=== PATIENT | male | born 1970 | race African-American/Black ===

== ENCOUNTER 2018-09-21 20:53 | Inpatient (IN) | payer OTHER ==
[~2018-09-21] VITALS: Ht 175.3 cm; Wt 97.3 kg
--- NOTE | 2018-09-21 21:13 | ERD ---
ER Documentation Chief Complaint Chief Complaint AP, VOMIT, DIARRHEA X'S 4 DAYS HPI The patient is a 48-year-old male, presenting to the because of diffuse abdominal pain, vomiting and diarrhea for the last 2 days, denies hematemesis /hematochezia. He denies fever, chills, neck pain, chest pain, dysuria. 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 Medications Home Meds Reported Medications Activated Charcoal (Charcoal) 200 Mg Capsule, 400 MG PO, CAP 09/21/18 Ibuprofen* (Advil*) 200 Mg Capsule, 400 MG PO Q6H PRN for PAIN, CAP 09/21/18 Loperamide Hcl* (Imodium*) 2 Mg Capsule, 2 MG PO Q6H PRN for DIARRHEA, CAP MAX 16 mg/day 09/21/18 Allergies Allergies: Coded Allergies: ampicillin (Verified Allergy, Unknown, 09/21/18) Physical Exam Vitals Vital Signs Date Temp Pulse Resp B/P (MAP) Pulse Ox O2 O2 Flow FiO2 Time Delivery Rate 09/21/18 99.0 95 18 137/100 100 Room Air 21:11 (112) 09/21/18 99.0 118 20 155/88 99 20:58 (110) Physical Exam Const: No acute distress. Head: Atraumatic. Eyes: Normal Conjunctiva. ENT: Normal External Ears, Nose and Mouth. Neck: Full range of motion. No meningismus. Resp: Clear to auscultation bilaterally. Cardio: Regular tachycardic Abd: Soft, non distended, normal bowel sounds, moderate and there is abdominal tenderness, hypoactive bowel sounds, no rigidity/rebound/CVA tenderness Skin: No petechiae or rashes. Back: No midline or flank tenderness. Ext: No cyanosis, or edema. Neur: Awake and alert. No focal deficit Psych: Normal Mood and Affect. Result Diagram: 09/21/18211809/21/182118 Results 24 hrs Laboratory Tests Test 09/21/18 21:18 09/21/18 21:19 POC Venous Lactate 2.1 mmol/L White Blood Count 6.6 10^3/ul Red Blood Count 6.35 10^6/ul Hemoglobin 18.9 g/dl Hematocrit 53.1 % Mean Corpuscular Volume 83.6 fl Mean Corpuscular Hemoglobin 29.8 pg Mean Corpuscular Hemoglobin Concent 35.6 g/dl Red Cell Distribution Width 11.9 % Platelet Count 274 10^3/UL Mean Platelet Volume 10.2 fl Immature Granulocytes % 0.300 % Neutrophils % 50.9 % Lymphocytes % 24.3 % Monocytes % 23.1 % Eosinophils % 0.3 % Basophils % 1.1 % Nucleated Red Blood Cells % 0.0 /100WBC Immature Granulocytes # 0.020 10^3/ul Neutrophils # 3.4 10^3/ul Lymphocytes # 1.6 10^3/ul Monocytes # 1.5 10^3/ul Eosinophils # 0.0 10^3/ul Basophils # 0.1 10^3/ul Nucleated Red Blood Cells # 0.0 10^3/ul Prothrombin Time 13.2 Sec Prothrombin Time Ratio 1.0 INR International Normalized Ratio 0.99 Activated Partial Thromboplast Time 24.7 Sec Sodium Level 135 mmol/L Potassium Level 3.9 mmol/L Chloride Level 97 mmol/L Carbon Dioxide Level 24 mmol/L Anion Gap 14 Blood Urea Nitrogen 20 mg/dl Creatinine 1.66 mg/dl Est Glomerular Filtrat Rate mL/min 45 mL/min Glucose Level 167 mg/dl Calcium Level 9.4 mg/dl Total Bilirubin 1.6 mg/dl Direct Bilirubin 0.00 mg/dl Indirect Bilirubin 1.6 mg/dl Aspartate Amino Transf (AST/SGOT) 40 IU/L Alanine Aminotransferase (ALT/SGPT) 56 IU/L Alkaline Phosphatase 72 IU/L Troponin I < 0.012 ng/ml Total Protein 8.6 g/dl Albumin 4.7 g/dl Globulin 3.90 g/dl Albumin/Globulin Ratio 1.20 Current Medications Medications Dose Sig/Cas Start Time Status Last (Trade) Ordered Route PRN Stop Time Admin Dose Reason Admin Sodium 2,750 ml BOLUS OVER 2 09/21/18 DC 09/21/18 Chloride HOURS STAT 21:23 21:43 (NS) IV* 09/21/18 21:27 Piperacillin 100 ml @ ONCE ONCE 09/21/18 DC 09/21/18 Sod/ 200 mls/hr IVPB 21:30 21:58 Tazobactam 09/21/18 21:59 Sod Ondansetron 4 mg ONCE STAT 09/21/18 DC 09/21/18 HCl (Zofran IV 21:23 21:43 Inj) 09/21/18 21:27 Procedures/MDM [place] [id number] Radiology Main Line: [phone] DIAGNOSTIC IMAGING REPORT Patient: MOISE CONLEY : 1970 Age: 48 Sex: M MR #: [id number] DOS: 09/21/182122 Ordering MD: DEVANG MOSCOSO MD Location: E/R Room/Bed: PROCEDURE: CT Abdomen and Pelvis Without Intravenous Contrast CLINICAL INDICATION: Abdominal pain. TECHNIQUE: Axial computed tomography images of the abdomen and pelvis without intravenous contrast. Sagittal and coronal reformatted images were created and reviewed. CTDIvol (mGy) = 15.90; total DLP (mGy-cm) = 1047.07. This CT exam was performed using one or more of the following dose reduction techniques: automated exposure control, adjustment of the mA and/or kV according to patient size, and/or use of iterative reconstruction technique. DICOM images are available. COMPARISON: None FINDINGS: LUNG BASES: Unremarkable. No mass. No consolidation. ABDOMEN: LIVER: Unremarkable. GALLBLADDER AND BILE DUCTS: Unremarkable. No calcified stones. No ductal dilation. PANCREAS: Unremarkable. No ductal dilation. SPLEEN: Unremarkable. No splenomegaly. ADRENALS: Unremarkable. No mass. KIDNEYS AND URETERS: Unremarkable. No obstructing stones. No hydronephrosis. STOMACH AND BOWEL: Multiple dilated small bowel loops are present. The bowel is dilated to the level of the distal ileum. The more proximal small bowel loops are not yet distended. The findings are consistent with distal small bowel obstruction, of uncertain etiology. Air-fluid levels are noted throughout the colon. There is no significant colonic dilatation. No colonic inflammation or gross mass demonstrated. PELVIS: APPENDIX: The appendix is normal in appearance. No evidence of appendicitis. BLADDER: Unremarkable. No stones. REPRODUCTIVE: Unremarkable as visualized. ABDOMEN and PELVIS: INTRAPERITONEAL SPACE: Unremarkable. No free air. No significant fluid collection. BONES/JOINTS: No acute fracture. No dislocation. SOFT TISSUES: Unremarkable. VASCULATURE: Unremarkable. LYMPH NODES: Unremarkable. No enlarged lymph nodes. IMPRESSION: 1. Multiple dilated small bowel loops are present. The bowel is dilated to the level of the distal ileum. The more proximal small bowel loops are not yet distended. The findings are consistent with distal small bowel obstruction, of uncertain etiology. No ischemic change or perforation of the bowel demonstrated. 2. No acute abnormality demonstrated of the solid abdominal organs. RPTAT: [facility] Soctt Melgoza Physician Accounting Coordinator Date Time Electronically viewed and signed by Scott Melgoza Physician Accounting Coordinator on 09/21/2018 23:14 RmC/ CC: DEVANG MOSCOSO MD [id number] [place] [id number] Radiology Main Line: [phone] DIAGNOSTIC IMAGING REPORT Patient: MOISE CONLEY : 1970 Age: 48 Sex: M MR #: [id number] DOS: 09/21/182122 Ordering MD: DEVANG MOSCOSO MD Location: E/R Room/Bed: PROCEDURE: Abdominal ultrasound, limited. CLINICAL INDICATION: Abdominal pain. TECHNIQUE: Multiple real-time images were acquired of the patient's right upper abdomen utilizing a high resolution transducer. COMPARISON: None FINDINGS: The liver demonstrates normal echogenicity and size measuring 15.0 cm. There is no focal hepatic mass identified. There is mild intrahepatic biliary ductal dilatation. The portal vein is patent. The gallbladder is not distended. No gallstones are identified. There is echogenic sludge within the gallbladder. There is no pericholecystic fluid or gallbladder wall thickening. The common bile duct measures 4.5 mm in maximal dimension. The pancreas is obscured by overlying bowel gas. No free fluid is identified. The right kidney is normal size with increased cortical echogenicity measuring 10.1 x 5.6 cm. There is no focal renal mass or echogenic calculus identified. There is no obstructive uropathy. The visualized abdominal aorta and vena cava are unremarkable. IMPRESSION: Gallbladder sludge without ultrasound evidence of cholecystitis. Mild intrahepatic biliary ductal dilatation. Increased right renal cortical echogenicity suggestive of medical renal disease. Pancreas obscured by overlying bowel gas. .Olivier Holbrook MD, MD Date Time Electronically viewed and signed by .Olivier Holbrook MD, MD on 09/21/2018 22:26 .T/ CC: DEVANG MOSCOSO MD [id number] [place] [address] Radiology Main Line: [phone] DIAGNOSTIC IMAGING REPORT Patient: MOISE CONLEY : 1970 Age: 48 Sex: M MR #: [id number] DOS: 09/21/183 Ordering MD: DEVANG MOSCOSO MD Location: E/R Room/Bed: PROCEDURE: XR Chest. CLINICAL INDICATION: Sepsis TECHNIQUE: Frontal chest x-ray was obtained. COMPARISON: None. FINDINGS: The heart is not enlarged. Mediastinum is not widened. No hilar masses seen. Lungs are clear of any infiltrates. There is no effusion or pneumothorax. The osseous structures appear normal. IMPRESSION: No evidence for active cardiopulmonary disease. .Roni Pittman MD, MD Date Time Electronically viewed and signed by .Roni Pittman MD, MD on 09/21/2018 21:29 .A/ CC: DEVANG MOSCOSO MD [id number] EKG: Read by emergency physician Rate/Rhythm: Normal Sinus Rhythm 92 beats/min QRS, ST, T-waves: No ST elevation, no T inversion, RAD Impression: Abnormal EKG Consultation: I notified the contracting manager surgeon Dr Pretty via Telemed at 11pm MEDICAL MAKING DECISION: The patient is a 48-year-old male, presenting with acute severe sepsis, acute SBO. He was treated with normal saline 30 mm/kg IV, Zosyn IV, NG tube for acute SBO, Zofran IV for nausea The differential diagnoses considered include but are not limited to cholelithiasis, cholecystitis, choledocholithiasis, cholangitis, pancreatitis, hepatitis, gastritis, peptic ulcer disease, gastric ulcer, appendicitis, cystitis, diverticulitis, partial small bowel obstruction. Departure Diagnosis: Primary Impression: Abdominal pain Additional Impressions: Small bowel obstruction Renal insufficiency Condition: Stable Comments I discussed the findings with the patient. I discussed the patient with Dr Hall at 11:30p , who was made aware of the lab, the treatment, the patient condition. The patient is admitted to [facility] Disclaimer: Inadvertent spelling and grammatical errors are likely due to EHR/dictation software use and do not reflect on the overall quality of patient care. Also, please note that the electronic time recorded on this note does not necessarily reflect the actual time of the patient encounter. DEVANG MOSCOSO MD Sep 21, 2018 21:13
[2018-09-21] MEDS ORDERED: ONDANSETRON 4 MG INJ IV STA (21:23)
[2018-09-21] MEDS ORDERED: SODIUM CHLORIDE 0.9% 1L BAG IV* STA (21:23)
[2018-09-21] MEDS ORDERED: PIPER-TAZO 3.375 GM IV (PMX) 100 ML IVPB ONE (21:30)
[2018-09-21] MEDS ORDERED: LOPE2CAP PO (22:50)
[2018-09-21] MEDS ORDERED: IBUP200C11 PO (22:50)
[2018-09-21] MEDS ORDERED: ACTI200C PO (22:51)
[2018-09-21] MEDS ORDERED: morphine 2 MG INJ IV PRN (23:30)
[2018-09-21] MEDS ORDERED: ONDANSETRON 4 MG INJ IV PRN (23:30)
[2018-09-21] MEDS ORDERED: NACL 0.9% 3 ML SYG IV SCH (23:30)
[2018-09-21] MEDS ORDERED: ACETAMINOPHEN 650 MG SUPP PR PRN (23:30)
[2018-09-22 00:45] VITALS: BP 128/87; PULSE 80; RESP 19
[2018-09-22] MEDS: SOD CHLORIDE 0.9% 1,000 ML IV SCH ×3 (01:34→22:29)
[2018-09-22 01:50] VITALS: Ht 175.3 cm; Wt 97.3 kg
[2018-09-22 02:00] VITALS: BP 130/89; PULSE 83; RESP 19
[2018-09-22 07:53] VITALS: BP 112/65; PULSE 80; RESP 16
[2018-09-22] MEDS: FAMOTIDINE 20 MG INJ IV SCH ×2 (10:02→20:32)
[2018-09-22] MEDS: ENOXAPARIN 30 MG/0.3 ML SYG SC SCH (10:05)
--- NOTE | 2018-09-22 11:25 | HP ---
Date/Time of Note Date/Time of Note DATE: 09/22/18 TIME: 11:20 Assessment/Plan VTE Prophylaxis SCD applied (from Nsg): Yes Pharmacological prophylaxis: LMWH Lines/Catheters IV Catheter Type (from Nrsg): Peripheral IV Assessment/Plan Assessment/Plan -Small bowel obstruction. Patient n.p.o., continue Zosyn, continue IV fluids. Continue Zofran as needed for nausea. Dr. Bernstein is asked to see patient in gastroenterology consultation. Dr. Pretty is following in general surgery consultation. -Abdominal pain and diarrhea. -Renal insufficiency. Abdominal ultrasound with increased right renal cortical echogenicity suggestive of medical renal disease. Continue IV fluids, monitor creatinine. Continue Pepcid for peptic ulcer disease prophylaxis and Lovenox for deep venous thrombosis prophylaxis. Further recommendations based on clinical course. Plan of care discussed with Dr. Hermosillo. Result Diagram: 09/22/18 0516 09/22/18 0516 Results 24hrs Laboratory Tests Test 09/21/18 21:18 09/21/18 21:19 09/21/18 23:30 09/21/18 23:39 POC Venous Lactate 2.1 *H White Blood Count 6.6 Red Blood Count 6.35 H Hemoglobin 18.9 H Hematocrit 53.1 H Mean Corpuscular 83.6 Volume Mean Corpuscular 29.8 Hemoglobin Mean Corpuscular 35.6 Hemoglobin Concent Red Cell 11.9 Distribution Width Platelet Count 274 Mean Platelet 10.2 Volume Immature 0.300 Granulocytes % Neutrophils % 50.9 Lymphocytes % 24.3 Monocytes % 23.1 H Eosinophils % 0.3 Basophils % 1.1 Nucleated Red Blood 0.0 Cells % Immature 0.020 Granulocytes # Neutrophils # 3.4 Lymphocytes # 1.6 Monocytes # 1.5 H Eosinophils # 0.0 Basophils # 0.1 Nucleated Red Blood 0.0 Cells # Prothrombin Time 13.2 Prothrombin Time 1.0 Ratio INR International 0.99 Normalized Ratio Activated 24.7 Partial Thromboplas t Time Sodium Level 135 Potassium Level 3.9 Chloride Level 97 Carbon Dioxide 24 Level Anion Gap 14 H Blood Urea Nitrogen 20 Creatinine 1.66 H Est Glomerular 45 L Filtrat Rate mL/min Glucose Level 167 Calcium Level 9.4 Total Bilirubin 1.6 H Direct Bilirubin 0.00 Indirect Bilirubin 1.6 H Aspartate Amino 40 Transf (AST/SGOT) Alanine 56 Aminotransferase (A LT/SGPT) Alkaline 72 Phosphatase Troponin I < 0.012 Total Protein 8.6 H Albumin 4.7 Globulin 3.90 H Albumin/Globulin 1.20 Ratio Urine Color KIRIT Urine Clarity CLEAR Urine pH 5.0 Urine Specific 1.015 [place] Urine Ketones NEGATIVE Urine Nitrite NEGATIVE Urine Bilirubin NEGATIVE Urine Urobilinogen NEGATIVE Urine Leukocyte NEGATIVE Esterase Urine Microscopic 1 RBC Urine Microscopic 2 WBC Urine Hemoglobin 1+ H Urine Glucose NEGATIVE Urine Total Protein NEGATIVE Bedside Urine pH 5.5 (LAB) Bedside Urine 1+ H Protein (LAB) Bedside Urine Negative Glucose (UA) Bedside Urine Negative Ketones (LAB) Bedside Urine Blood Trace-lysed H Bedside Urine Negative Nitrite (LAB) Bedside Urine Negative Leukocyte Esterase (L Test 09/22/18 00:14 09/22/18 01:56 09/22/18 05:00 09/22/18 05:16 Lactic Acid Level 1.2 1.1 Stool Occult Blood NEGATIVE White Blood Count 5.5 Red Blood Count 5.59 Hemoglobin 16.4 Hematocrit 46.7 Mean Corpuscular 83.5 Volume Mean Corpuscular 29.3 Hemoglobin Mean Corpuscular 35.1 Hemoglobin Concent Red Cell 12.2 Distribution Width Platelet Count 217 # Mean Platelet 10.3 Volume Immature 0.200 Granulocytes % Neutrophils % Segmented 10 L Neutrophils % (Manual) Band Neutrophils % 29 H (Manual) Lymphocytes % Lymphocytes % 26 (Manual) Reactive 3 H Lymphocytes % (Manual) Monocytes % Monocytes % 26 H (Manual) Eosinophils % Eosinophils % 4 (Manual) Basophils % Promyelocytes % 1 H (Manual) Nucleated Red Blood 0.0 Cells % Immature 0.010 Granulocytes # Neutrophils # Neutrophils # 0.6 L (Manual) Band Neutrophils # 1.5 H Lymphocytes 1.4 (Manual) Lymphocytes # Reactive 0.1 H Lymphocytes # Monocytes # Monocytes # 1.4 H (Manual) Eosinophils # Basophils # Promyelocytes # 0.0 Nucleated Red Blood Cells # Platelet Estimate NORMAL Giant Platelets 2 H Polychromasia 1+ Tear Drop Cells 2+ Sodium Level 140 Potassium Level 3.5 Chloride Level 106 Carbon Dioxide 21 Level Anion Gap 13 Blood Urea Nitrogen 17 Creatinine 1.28 H Est Glomerular > 60 Filtrat Rate mL/min Glucose Level 115 # Hemoglobin A1c 5.5 Calcium Level 8.0 L Total Bilirubin 2.4 H Direct Bilirubin 0.90 #H Indirect Bilirubin 1.5 H Aspartate Amino 37 Transf (AST/SGOT) Alanine 56 Aminotransferase (A LT/SGPT) Alkaline 61 Phosphatase Total Protein 7.1 # Albumin 3.7 # Globulin 3.40 H Albumin/Globulin 1.08 Ratio HPI/ROS Admit Date/Time Admit Date/Time Sep 21, 2018 at 23:30 Hx of Present Illness Patient is 48-year-old gentleman who denies any chronic conditions. Patient had a history of right shoulder sarcoma and underwent surgery for that in 2005, and according to patient, was clear from cancer since then. Patient stated that he developed nausea and watery diarrhea on Thursday after eating pizza at work. Symptoms did not get better over the weekend and patient presented to the emergency room last night. Patient denies any hematemesis, denies hematochezia. Patient denies any fever chills, denies any chest pain denies shortness of breath, denies any bilateral lower extremities edema. CT of the abdomen and pelvis revealed distal small bowel obstruction. Patient was given IV fluids, started on Zosyn and admitted for further evaluation and management to medical s urgical floor. ROS 12 point review of system is negative except for what mentioned in HPI PMH/Family/Social Past Medical History Medical History: other (History of skin sarcoma status post surgery, currently in remission) Medications Current Medications Sodium Chloride 1,000 ml @ 100 mls/hr Q10H IV Last administered on 09/22/18at 01:34; Admin Dose 100 MLS/HR; Start 09/21/18 at 23:30 IV Flush (NS 3 ml) 3 ml PER PROTOCOL IV ; Start 09/21/18 at 23:30 Ondansetron HCl (Zofran Inj) 4 mg Q6H PRN IV NAUSEA/VOMITING; Start 09/21/18 at 23:30 Acetaminophen (Tylenol Supp) 650 mg Q6H PRN [place] .PAIN 1-3 OR TEMP; Start 09/21/18 at 23:30 Morphine Sulfate (morphine) 2 mg Q4H PRN IV .SEVERE PAIN 7-10; Start 09/21/18 at 23:30 Famotidine (Pepcid Iv) 20 mg Q12 IV Last administered on 09/22/18at 10:02; Admin Dose 20 MG; Start 09/22/18 at 09:00 Enoxaparin Sodium (Lovenox) 30 mg DAILY SC Last administered on 09/22/18at 10:05; Admin Dose 30 MG; Start 09/22/18 at 09:00 Coded Allergies: ampicillin (Verified Allergy, Unknown, 09/21/18) Past Surgical History Past Surgical Hx: other (Right shoulder surgery for skin sarcoma in 2006) Family History Significant Family History: cancer (Colon cancer in patient's father) Social History Alcohol Use: rarely Smoking Status: Never smoker Drug Use: none Exam/Review of Systems Vital Signs Vitals Vital Signs Date Temp Pulse Resp B/P (MAP) Pulse Ox O2 O2 Flow FiO2 Time Delivery Rate 09/22/18 98.4 80 16 112/65 98 07:53 (81) 09/22/18 Room Air 00:31 Intake and Output 09/21/18 09/21/18 09/22/18 1515:00 23:00 07:00 IntakeIntake Total 350 ml BalanceBalance 350 ml Exam Constitutional: alert, oriented Head: normocephalic Neck: supple Respiratory: normal air movement Cardiovascular: nl pulses Gastrointestinal: soft, tender Musculoskeletal: nl extremities to inspection Extremities: normal pulses Neurological: nl mental status ALLISON YOST Sep 22, 2018 11:25
[2018-09-22] MEDS: PIPER-TAZO 3.375 GM IV (PMX) 100 ML IVPB SCH ×2 (13:22→22:29)
--- NOTE | 2018-09-22 13:31 | CONS ---
Assessment/Plan Assessment/Plan Hospital Course (Demo Recall) 1. Concern for small bowel obstruction: Currently + bowel function -SBFT -Ambulate -N.p.o. -IV fluids 2. Abdominal pain: Much improved -As above -Pain management 3. Hyperbilirubinemia: Noted sludge in gallbladder without cholecystitis -Trend -Consider GI consult 4. BRE: -Limit nephrotoxic meds -Renally dose meds -Per renal -Judicious fluids Thank you. Patient seen and examined in collaboration with Dr. Regulo Pretty. Consultation Date/Type/Reason Admit Date/Time Sep 21, 2018 at 23:30 Date of Consultation: Sep 22, 2018 Type of Consult surgical Reason for Consultation abdominal pain, concern for bowel obstruction Requesting Provider: ALLISON YOST Date/Time of Note DATE: 09/22/18 TIME: 13:18 Hx of Present Illness Reese Palomino is a 48-year-old man with past medical history of skin sarcoma status post excision, who presented to the ED with complaints of abdominal pain. Abdominal pain began on Thursday after eating pizza. Abdominal pain is predominantly in the right mid to lower quadrant, strong in nature. Associated symptoms include nausea and vomiting as well as watery diarrhea. He denies fevers, chills, congested cough, chest pain, palpitations, skin or scleral changes, dysuria, hematemesis, hematochezia. CT of the abdomen and pelvis noted multiple dilated small bowel loops at the level of distal ileum concerning for small bowel obstruction. General surgery was asked to evaluate. 12 point review of systems was performed and is negative except as stated in HPI. Past Medical History As above Medical History: other (History of skin sarcoma status post surgery, currently in remission) Home Meds Reported Medications Activated Charcoal (Charcoal) 200 Mg Capsule, 400 MG PO, CAP 09/21/18 Ibuprofen* (Advil*) 200 Mg Capsule, 400 MG PO Q6H PRN for PAIN, CAP 09/21/18 Loperamide Hcl* (Imodium*) 2 Mg Capsule, 2 MG PO Q6H PRN for DIARRHEA, CAP MAX 16 mg/day 09/21/18 Medications Current Medications Sodium Chloride 1,000 ml @ 100 mls/hr Q10H IV Last administered on 09/22/18at 01:34; Admin Dose 100 MLS/HR; Start 09/21/18 at 23:30 IV Flush (NS 3 ml) 3 ml PER PROTOCOL IV ; Start 09/21/18 at 23:30 Ondansetron HCl (Zofran Inj) 4 mg Q6H PRN IV NAUSEA/VOMITING; Start 09/21/18 at 23:30 Acetaminophen (Tylenol Supp) 650 mg Q6H PRN [place] .PAIN 1-3 OR TEMP; Start 09/21/18 at 23:30 Morphine Sulfate (morphine) 2 mg Q4H PRN IV .SEVERE PAIN 7-10; Start 09/21/18 at 23:30 Famotidine (Pepcid Iv) 20 mg Q12 IV Last administered on 09/22/18at 10:02; Admin Dose 20 MG; Start 09/22/18 at 09:00 Enoxaparin Sodium (Lovenox) 30 mg DAILY SC Last administered on 09/22/18at 10:05; Admin Dose 30 MG; Start 09/22/18 at 09:00 Piperacillin Sod/ Tazobactam Sod 100 ml @ 100 mls/hr Q8 IVPB ; Start 09/22/18 at 13:00 Allergies: Coded Allergies: ampicillin (Verified Allergy, Unknown, 09/21/18) Past Surgical History As above Past Surgical Hx: other (Right shoulder surgery for skin sarcoma in 2005) Family History Significant Family History: no pertinent family hx Social History Alcohol Use: rarely Smoking Status: Never smoker Drug Use: none Exam/Review of Systems Exam Vitals Vital Signs Date Temp Pulse Resp B/P (MAP) Pulse Ox O2 O2 Flow FiO2 Time Delivery Rate 09/22/18 98.4 80 16 112/65 98 07:53 (81) 09/22/18 Room Air 00:31 Intake and Output 09/21/18 09/21/18 09/22/18 1515:00 23:00 07:00 IntakeIntake Total 350 ml BalanceBalance 350 ml Constitutional: alert, oriented, well developed Psych: nl mood/affect; No anxiety Head: normocephalic, atraumatic Eyes: nl conjunctiva, EOMI, nl lids; No nl sclera (Minimal icterus) ENMT: nl external ears & nose, nl lips & teeth, nl nasal mucosa & septum, mucosa pink and moist Neck: supple, non-tender; No jvd Respiratory: normal air movement; No congested cough Cardiovascular: regular rate and rhythm Gastrointestinal: soft, non-tender, other (Umbilical hernia) Musculoskeletal: nl extremities to inspection, nl gait and stance Extremities: normal pulses Neurological: nl mental status, nl speech, nl strength Skin: nl turgor; No rash or lesions Lymph: nl lymph nodes Results Result Diagram: 09/22/18 0516 09/22/18 0516 Results 24hrs Laboratory Tests Test 09/21/18 21:18 09/21/18 21:19 09/21/18 23:30 09/21/18 23:39 POC Venous Lactate 2.1 *H White Blood Count 6.6 Red Blood Count 6.35 H Hemoglobin 18.9 H Hematocrit 53.1 H Mean Corpuscular 83.6 Volume Mean Corpuscular 29.8 Hemoglobin Mean Corpuscular 35.6 Hemoglobin Concent Red Cell 11.9 Distribution Width Platelet Count 274 Mean Platelet 10.2 Volume Immature 0.300 Granulocytes % Neutrophils % 50.9 Lymphocytes % 24.3 Monocytes % 23.1 H Eosinophils % 0.3 Basophils % 1.1 Nucleated Red Blood 0.0 Cells % Immature 0.020 Granulocytes # Neutrophils # 3.4 Lymphocytes # 1.6 Monocytes # 1.5 H Eosinophils # 0.0 Basophils # 0.1 Nucleated Red Blood 0.0 Cells # Prothrombin Time 13.2 Prothrombin Time 1.0 Ratio INR International 0.99 Normalized Ratio Activated 24.7 Partial Thromboplas t Time Sodium Level 135 Potassium Level 3.9 Chloride Level 97 Carbon Dioxide 24 Level Anion Gap 14 H Blood Urea Nitrogen 20 Creatinine 1.66 H Est Glomerular 45 L Filtrat Rate mL/min Glucose Level 167 Calcium Level 9.4 Total Bilirubin 1.6 H Direct Bilirubin 0.00 Indirect Bilirubin 1.6 H Aspartate Amino 40 Transf (AST/SGOT) Alanine 56 Aminotransferase (A LT/SGPT) Alkaline 72 Phosphatase Troponin I < 0.012 Total Protein 8.6 H Albumin 4.7 Globulin 3.90 H Albumin/Globulin 1.20 Ratio Urine Color KIRIT Urine Clarity CLEAR Urine pH 5.0 Urine Specific 1.015 Dwarf Urine Ketones NEGATIVE Urine Nitrite NEGATIVE Urine Bilirubin NEGATIVE Urine Urobilinogen NEGATIVE Urine Leukocyte NEGATIVE Esterase Urine Microscopic 1 RBC Urine Microscopic 2 WBC Urine Hemoglobin 1+ H Urine Glucose NEGATIVE Urine Total Protein NEGATIVE Bedside Urine pH 5.5 (LAB) Bedside Urine 1+ H Protein (LAB) Bedside Urine Negative Glucose (UA) Bedside Urine Negative Ketones (LAB) Bedside Urine Blood Trace-lysed H Bedside Urine Negative Nitrite (LAB) Bedside Urine Negative Leukocyte Esterase (L Test 09/22/18 00:14 09/22/18 01:56 09/22/18 05:00 09/22/18 05:16 Lactic Acid Level 1.2 1.1 Stool Occult Blood NEGATIVE White Blood Count 5.5 Red Blood Count 5.59 Hemoglobin 16.4 Hematocrit 46.7 Mean Corpuscular 83.5 Volume Mean Corpuscular 29.3 Hemoglobin Mean Corpuscular 35.1 Hemoglobin Concent Red Cell 12.2 Distribution Width Platelet Count 217 # Mean Platelet 10.3 Volume Immature 0.200 Granulocytes % Neutrophils % Segmented 10 L Neutrophils % (Manual) Band Neutrophils % 29 H (Manual) Lymphocytes % Lymphocytes % 26 (Manual) Reactive 3 H Lymphocytes % (Manual) Monocytes % Monocytes % 26 H (Manual) Eosinophils % Eosinophils % 4 (Manual) Basophils % Promyelocytes % 1 H (Manual) Nucleated Red Blood 0.0 Cells % Immature 0.010 Granulocytes # Neutrophils # Neutrophils # 0.6 L (Manual) Band Neutrophils # 1.5 H Lymphocytes 1.4 (Manual) Lymphocytes # Reactive 0.1 H Lymphocytes # Monocytes # Monocytes # 1.4 H (Manual) Eosinophils # Basophils # Promyelocytes # 0.0 Nucleated Red Blood Cells # Platelet Estimate NORMAL Giant Platelets 2 H Polychromasia 1+ Tear Drop Cells 2+ Sodium Level 140 Potassium Level 3.5 Chloride Level 106 Carbon Dioxide 21 Level Anion Gap 13 Blood Urea Nitrogen 17 Creatinine 1.28 H Est Glomerular > 60 Filtrat Rate mL/min Glucose Level 115 # Hemoglobin A1c 5.5 Calcium Level 8.0 L Total Bilirubin 2.4 H Direct Bilirubin 0.90 #H Indirect Bilirubin 1.5 H Aspartate Amino 37 Transf (AST/SGOT) Alanine 56 Aminotransferase (A LT/SGPT) Alkaline 61 Phosphatase Total Protein 7.1 # Albumin 3.7 # Globulin 3.40 H Albumin/Globulin 1.08 Ratio Medications Medication Current Medications Sodium Chloride 1,000 ml @ 100 mls/hr Q10H IV Last administered on 09/22/18at 01:34; Admin Dose 100 MLS/HR; Start 09/21/18 at 23:30 IV Flush (NS 3 ml) 3 ml PER PROTOCOL IV ; Start 09/21/18 at 23:30 Ondansetron HCl (Zofran Inj) 4 mg Q6H PRN IV NAUSEA/VOMITING; Start 09/21/18 at 23:30 Acetaminophen (Tylenol Supp) 650 mg Q6H PRN [place] .PAIN 1-3 OR TEMP; Start 09/21/18 at 23:30 Morphine Sulfate (morphine) 2 mg Q4H PRN IV .SEVERE PAIN 7-10; Start 09/21/18 at 23:30 Famotidine (Pepcid Iv) 20 mg Q12 IV Last administered on 09/22/18at 10:02; Admin Dose 20 MG; Start 09/22/18 at 09:00 Enoxaparin Sodium (Lovenox) 30 mg DAILY SC Last administered on 09/22/18at 10:05; Admin Dose 30 MG; Start 09/22/18 at 09:00 Piperacillin Sod/ Tazobactam Sod 100 ml @ 100 mls/hr Q8 IVPB ; Start 09/22/18 at 13:00 SRAVAN HAMILTON NP Sep 22, 2018 13:31
--- NOTE | 2018-09-22 19:41 | CONS ---
DATE OF ADMISSION: 09/21/2018 DATE OF CONSULTATION: HISTORY OF PRESENT ILLNESS: The patient is a 48-year-old gentleman with no surgery on his abdomen in the past. No history of any kind of colitis or Crohn's disease, was admitted to the hospital for ab dominal pain, nausea and vomiting and this happened after eating pizza. No fever, no chills, no o r MACHINE BURRER problem. No history of circumstantial evidence of food poisoning. PAST MEDICAL HISTORY: History of skin sarcoma for which he had surgery. MEDICATIONS: He was on ibuprofen and was given Imodium. In-hospital medications reviewed. ALLERGIES: AMPICILLIN. FAMILY HISTORY: Father had a colon cancer. PHYSICAL EXAMINATION: GENERAL: Alert, awake, not in distress. I saw him in the x-ray department. CARDIOVASCULAR: Totally benign. LUNGS: Clear. EXTREMITIES: No edema. CENTRAL NERVOUS SYSTEM: Grossly within normal limits. LABORATORY DATA: He had multiple bowel movements in the radiology department. I reviewed his x-ray and there was a good flow of contrast all the way into the rectum not indicative of any obstructive p athology. IMPRESSION: 1. Small-bowel obstruction as described on CAT scan, has clinically and radiologically seems to have resolved. 2. Family history of colon carcinoma. 3. Sarcoma of the skin for which he had a surgery. PLAN: To start him on a clear liquid diet, Zofran or Reglan for the symptomatic relief of nausea, vo miting which he does not have it now and will advance the diet slowly. Continue IV hydration. Dictated By: YRN NIELSON MD PJ/NTS Conf#: [id number] DID#: [id number] CC: VOLODYMYR MORAN MD; EVAN EVERETT MD; ALLISON YOST NP;*EndCC*
[2018-09-22 20:00] VITALS: BP 129/84; PULSE 91; RESP 19
[2018-09-23 02:00] VITALS: BP 123/77; PULSE 81; RESP 19
[2018-09-23] MEDS: PIPER-TAZO 3.375 GM IV (PMX) 100 ML IVPB SCH ×3 (06:14→21:42)
[2018-09-23] MEDS: SOD CHLORIDE 0.9% 1,000 ML IV SCH ×3 (07:39→20:37)
[2018-09-23 08:37] VITALS: BP 128/83; PULSE 80; RESP 18
[2018-09-23] MEDS: ENOXAPARIN 30 MG/0.3 ML SYG SC SCH (09:00)
[2018-09-23] MEDS: FAMOTIDINE 20 MG INJ IV SCH ×2 (09:24→20:22)
--- NOTE | 2018-09-23 11:01 | CONS ---
Assessment/Plan Assessment/Plan Assessment/Plan (Daily) IMPRESSION: 1. Small-bowel obstruction as described on CAT scan, has clinically and radiologically seems to have resolved. 2. Family history of colon carcinoma. 3. Sarcoma of the skin for which he had a surgery. 4. Indirect bilirubinemia. Patient may have a Gilbert's syndrome Plan Advance diet Patient needs colonoscopy as an outpatient given the strong family history of colon cancer. I have discussed with the patient and he will follow-up with his outpatient rehab physician Consultation Date/Type/Reason Admit Date/Time Sep 21, 2018 at 23:30 Initial Consult Date 09/22/18 Requesting Provider: ALLISON YOST Date/Time of Note DATE: 09/23/18 TIME: 11:00 24 HR Interval Summary Free Text/Dictation Patient denies of abdominal pain no nausea no vomiting He has some diarrhea. Constitutional: no complaints, improved Exam/Review of Systems Exam Vitals Vital Signs Date Temp Pulse Resp B/P (MAP) Pulse Ox O2 O2 Flow FiO2 Time Delivery Rate 09/23/18 98.4 80 18 128/83 98 Room Air 08:37 (98) Intake and Output 09/22/18 09/22/18 09/23/18 1515:00 23:00 07:00 IntakeIntake Total 100 ml 1650 ml 750 ml BalanceBalance 100 ml 1650 ml 750 ml Constitutional: alert, oriented, well developed Psych: no complaints, nl mood/affect Head: normocephalic, atraumatic Eyes: nl conjunctiva, EOMI, nl lids, nl sclera, PERRL ENMT: nl external ears & nose, nl lips & teeth, nl nasal mucosa & septum Neck: supple, non-tender Respiratory: clear to auscultation, normal air movement Cardiovascular: regular rate and rhythm, nl pulses Gastrointestinal: soft, nl liver, spleen, non-tender Musculoskeletal: nl extremities to inspection, nl gait and stance Extremities: normal pulses Neurological: [employer] II-XII intact, nl mental status, nl speech, nl strength Skin: nl turgor; No rash or lesions Lymph: nl lymph nodes Results Result Diagram: 09/22/18 0516 09/23/18 0659 Results 24hrs Laboratory Tests Test 09/23/18 06:59 Sodium Level 137 Potassium Level 3.1 L Chloride Level 102 Carbon Dioxide Level 24 Anion Gap 11 Blood Urea Nitrogen 15 Creatinine 1.39 H Est Glomerular Filtrat Rate mL/min > 60 Glucose Level 119 Calcium Level 8.7 Total Bilirubin 1.4 H Direct Bilirubin 0.10 # Indirect Bilirubin 1.3 H Aspartate Amino Transf (AST/SGOT) 47 H Alanine Aminotransferase (ALT/SGPT) 71 H Alkaline Phosphatase 67 Total Protein 7.5 Albumin 4.1 Globulin 3.40 H Albumin/Globulin Ratio 1.20 Medications Medication Current Medications Sodium Chloride 1,000 ml @ 100 mls/hr Q10H IV Last administered on 09/22/18at 22:29; Admin Dose 100 MLS/HR; Start 09/21/18 at 23:30 IV Flush (NS 3 ml) 3 ml PER PROTOCOL IV ; Start 09/21/18 at 23:30 Ondansetron HCl (Zofran Inj) 4 mg Q6H PRN IV NAUSEA/VOMITING; Start 09/21/18 at 23:30 Acetaminophen (Tylenol Supp) 650 mg Q6H PRN [place] .PAIN 1-3 OR TEMP; Start 09/21/18 at 23:30 Morphine Sulfate (morphine) 2 mg Q4H PRN IV .SEVERE PAIN 7-10; Start 09/21/18 at 23:30 Famotidine (Pepcid Iv) 20 mg Q12 IV Last administered on 09/23/18at 09:24; Admin Dose 20 MG; Start 09/22/18 at 09:00 Enoxaparin Sodium (Lovenox) 30 mg DAILY SC Last administered on 09/22/18at 10:05; Admin Dose 30 MG; Start 09/22/18 at 09:00 Piperacillin Sod/ Tazobactam Sod 100 ml @ 100 mls/hr Q8 IVPB Last administered on 09/23/18at 06:14; Admin Dose 100 MLS/HR; Start 09/22/18 at 13:00 YRN NIELSON MD Sep 23, 2018 11:01
--- NOTE | 2018-09-23 13:34 | PN ---
Date/Time of Note Date/Time of Note DATE: 09/23/18 TIME: 13:32 Assessment/Plan Lines/Catheters IV Catheter Type (from Nrs): Peripheral IV Assessment/Plan Chief Complaint/Hosp Course 1. Concern for small bowel obstruction: Currently + bowel function; SBFT noted no obstruction -Advance diet as tolerated -No surgical intervention necessary at this time 2. Abdominal pain: Resolved -As above -Pain management 3. Hyperbilirubinemia: Noted sludge in gallbladder without cholecystitis -Trend -Per GI 4. BRE: -Limit nephrotoxic meds -Renally dose meds -Judicious fluids Thank you. Patient seen and examined in collaboration with Dr. Regulo Pretty. Subjective 24 Hr Interval Summary SBFT noted without bowel obstruction. No abdominal pain. Will advance diet today. No fevers, chills, sob, congested cough, cp, palpitations, logan, dizziness, nausea, vomiting, diarrhea, dysuria. Exam/Review of Systems Vital Signs Vitals Vital Signs Date Temp Pulse Resp B/P (MAP) Pulse Ox O2 O2 Flow FiO2 Time Delivery Rate 09/23/18 98.4 80 18 128/83 98 Room Air 08:37 (98) Intake and Output 09/22/18 09/22/18 09/23/18 1515:00 23:00 07:00 IntakeIntake Total 100 ml 1650 ml 750 ml BalanceBalance 100 ml 1650 ml 750 ml Exam Free Text/Dictation Constitutional: alert, oriented, well developed Psych: nl mood/affect; No anxiety Head: normocephalic, atraumatic Eyes: nl conjunctiva, EOMI, nl lids; No nl sclera (Minimal icterus) ENMT: nl external ears & nose, nl lips & teeth, nl nasal mucosa & septum, mucosa pink and moist Neck: supple, non-tender; No jvd Respiratory: normal air movement; No congested cough Cardiovascular: regular rate and rhythm Gastrointestinal: soft, non-tender, other (Umbilical hernia) Musculoskeletal: nl extremities to inspection, nl gait and stance Extremities: normal pulses Neurological: nl mental status, nl speech, nl strength Skin: nl turgor; No rash or lesions Lymph: nl lymph nodes Results Result Diagram: 09/22/18 0516 09/23/18 0659 SRAVAN HAMILTON NP Sep 23, 2018 13:34
[2018-09-23 14:56] VITALS: BP 121/81; PULSE 81; RESP 18
--- NOTE | 2018-09-23 18:45 | PN ---
Date/Time of Note Date/Time of Note DATE: 09/23/18 TIME: 18:39 Assessment/Plan VTE Prophylaxis Risk score (from Ns)>0 risk: 2 SCD applied (from Nsg): Yes Pharmacological prophylaxis: LMWH Lines/Catheters IV Catheter Type (from Nrs): Peripheral IV Assessment/Plan Hospital Course Patient stated that he feels better, advance diet to soft, small bowel series is negative for small bowel obstruction, if patient is able to tolerate regular diet well patient can be discharged home tomorrow. Patient is to follow-up with Dr. Bernstein, gastroenterology consultation for colonoscopy due to strong family history of colon cancer. Plan of care discussed with patient and nurse at the bedside, all questions answered. Assessment/Plan -Small bowel obstruction, resolving. Advance diet as patient tolerates. Dr. Bernstein is following in gastroenterology consultation. Dr. Pretty is following in general surgery consultation. -Abdominal pain and diarrhea, resolved. -Indirect bilirubinemia most likely secondary to Gilbert's syndrome -Renal insufficiency. Abdominal ultrasound with increased right renal cortical echogenicity suggestive of medical renal disease. Renal ultrasound is unremar kable. Continue IV fluids, monitor creatinine. Continue Pepcid for peptic ulcer disease prophylaxis and Lovenox for deep venous thrombosis prophylaxis. Further recommendations based on clinical course. Plan of care discussed with Dr. Hermosillo. Result Diagram: 09/22/18 0516 09/23/18 0659 Results 24hrs Laboratory Tests Test 09/23/18 06:59 Sodium Level 137 Potassium Level 3.1 L Chloride Level 102 Carbon Dioxide Level 24 Anion Gap 11 Blood Urea Nitrogen 15 Creatinine 1.39 H Est Glomerular Filtrat Rate mL/min > 60 Glucose Level 119 Calcium Level 8.7 Total Bilirubin 1.4 H Direct Bilirubin 0.10 # Indirect Bilirubin 1.3 H Aspartate Amino Transf (AST/SGOT) 47 H Alanine Aminotransferase (ALT/SGPT) 71 H Alkaline Phosphatase 67 Total Protein 7.5 Albumin 4.1 Globulin 3.40 H Albumin/Globulin Ratio 1.20 Exam/Review of Systems Exam Vitals Vital Signs Date Temp Pulse Resp B/P (MAP) Pulse Ox O2 O2 Flow FiO2 Time Delivery Rate 09/23/18 98.2 81 18 121/81 98 14:56 (94) Intake and Output 09/22/18 09/22/18 09/23/18 1515:00 23:00 07:00 IntakeIntake Total 100 ml 1650 ml 750 ml BalanceBalance 100 ml 1650 ml 750 ml Exam Constitutional: alert, oriented Respiratory: normal air movement Cardiovascular: nl pulses Gastrointestinal: soft, non-tender Musculoskeletal: nl extremities to inspection Extremities: normal pulses Neurological: nl mental status Results Results 24hrs Laboratory Tests Test 09/23/18 06:59 Sodium Level 137 Potassium Level 3.1 L Chloride Level 102 Carbon Dioxide Level 24 Anion Gap 11 Blood Urea Nitrogen 15 Creatinine 1.39 H Est Glomerular Filtrat Rate mL/min > 60 Glucose Level 119 Calcium Level 8.7 Total Bilirubin 1.4 H Direct Bilirubin 0.10 # Indirect Bilirubin 1.3 H Aspartate Amino Transf (AST/SGOT) 47 H Alanine Aminotransferase (ALT/SGPT) 71 H Alkaline Phosphatase 67 Total Protein 7.5 Albumin 4.1 Globulin 3.40 H Albumin/Globulin Ratio 1.20 Medications Medication Current Medications Sodium Chloride 1,000 ml @ 100 mls/hr Q10H IV Last administered on 09/22/18at 22:29; Admin Dose 100 MLS/HR; Start 09/21/18 at 23:30 IV Flush (NS 3 ml) 3 ml PER PROTOCOL IV ; Start 09/21/18 at 23:30 Ondansetron HCl (Zofran Inj) 4 mg Q6H PRN IV NAUSEA/VOMITING; Start 09/21/18 at 23:30 Acetaminophen (Tylenol Supp) 650 mg Q6H PRN [place] .PAIN 1-3 OR TEMP; Start 09/21/18 at 23:30 Morphine Sulfate (morphine) 2 mg Q4H PRN IV .SEVERE PAIN 7-10; Start 09/21/18 at 23:30 Famotidine (Pepcid Iv) 20 mg Q12 IV Last administered on 09/23/18at 09:24; Admin Dose 20 MG; Start 09/22/18 at 09:00 Enoxaparin Sodium (Lovenox) 30 mg DAILY SC Last administered on 09/22/18at 10:05; Admin Dose 30 MG; Start 09/22/18 at 09:00 Piperacillin Sod/ Tazobactam Sod 100 ml @ 100 mls/hr Q8 IVPB Last administered on 09/23/18at 15:42; Admin Dose 100 MLS/HR; Start 09/22/18 at 13:00 ALLISON YOST 13, 2019 18:45
[2018-09-23] MEDS ORDERED: POTASSIUM CHLORIDE 20 MEQ POWDER FOR ORAL SOLN PO ONE (19:00)
[2018-09-23 20:00] VITALS: BP 133/87; PULSE 79; RESP 17
[2018-09-24] MEDS: SOD CHLORIDE 0.9% 1,000 ML IV SCH ×2 (01:30→09:42)
[2018-09-24 01:57] VITALS: BP 133/89; PULSE 88; RESP 17
--- NOTE | 2018-09-24 05:19 | PN ---
Date/Time of Note Date/Time of Note DATE: 09/24/18 TIME: 05:19 Assessment/Plan VTE Prophylaxis Risk score (from Nsg)>0 risk: 2 SCD applied (from Nsg): No Lines/Catheters IV Catheter Type (from Nrsg): Peripheral IV Assessment/Plan Assessment/Plan -Small bowel obstruction, resolving. Advance diet as patient tolerates. Dr. Bernstein is following in gastroenterology consultation. Dr. Pretty is following in general surgery consultation. -Abdominal pain and diarrhea, resolved. -Indirect bilirubinemia most likely secondary to Gilbert's syndrome -Renal insufficiency. Abdominal ultrasound with increased right renal cortical echogenicity suggestive of medical renal disease. Renal ultrasound is unremarkable. Continue IV fluids, monitor creatinine. Continue Pepcid for peptic ulcer disease prophylaxis and Lovenox for deep venous thrombosis prophylaxis. Further recommendations based on clinical course. Plan of care discussed with Dr. Hermosillo. Result Diagram: 09/22/18 0516 09/23/18 0659 Results 24hrs Laboratory Tests Test 09/23/18 06:59 Sodium Level 137 Potassium Level 3.1 L Chloride Level 102 Carbon Dioxide Level 24 Anion Gap 11 Blood Urea Nitrogen 15 Creatinine 1.39 H Est Glomerular Filtrat Rate mL/min > 60 Glucose Level 119 Calcium Level 8.7 Total Bilirubin 1.4 H Direct Bilirubin 0.10 # Indirect Bilirubin 1.3 H Aspartate Amino Transf (AST/SGOT) 47 H Alanine Aminotransferase (ALT/SGPT) 71 H Alkaline Phosphatase 67 Total Protein 7.5 Albumin 4.1 Globulin 3.40 H Albumin/Globulin Ratio 1.20 Exam/Review of Systems Exam Vitals Vital Signs Date Temp Pulse Resp B/P (MAP) Pulse Ox O2 O2 Flow FiO2 Time Delivery Rate 09/24/18 98.5 88 17 133/89 97 01:57 (104) 09/23/18 14:56 Intake and Output 09/23/18 09/23/18 09/24/18 1515:00 23:00 07:00 IntakeIntake Total 1240 ml 510 ml OutputOutput Total 200 ml BalanceBalance 1040 ml 510 ml Results Results 24hrs Laboratory Tests Test 09/23/18 06:59 Sodium Level 137 Potassium Level 3.1 L Chloride Level 102 Carbon Dioxide Level 24 Anion Gap 11 Blood Urea Nitrogen 15 Creatinine 1.39 H Est Glomerular Filtrat Rate mL/min > 60 Glucose Level 119 Calcium Level 8.7 Total Bilirubin 1.4 H Direct Bilirubin 0.10 # Indirect Bilirubin 1.3 H Aspartate Amino Transf (AST/SGOT) 47 H Alanine Aminotransferase (ALT/SGPT) 71 H Alkaline Phosphatase 67 Total Protein 7.5 Albumin 4.1 Globulin 3.40 H Albumin/Globulin Ratio 1.20 Medications Medication Current Medications Sodium Chloride 1,000 ml @ 100 mls/hr Q10H IV Last administered on 09/23/18at 20:37; Admin Dose 100 MLS/HR; Start 09/21/18 at 23:30 IV Flush (NS 3 ml) 3 ml PER PROTOCOL IV ; Start 09/21/18 at 23:30 Ondansetron HCl (Zofran Inj) 4 mg Q6H PRN IV NAUSEA/VOMITING; Start 09/21/18 at 23:30 Acetaminophen (Tylenol Supp) 650 mg Q6H PRN [place] .PAIN 1-3 OR TEMP; Start 09/21/18 at 23:30 Morphine Sulfate (morphine) 2 mg Q4H PRN IV .SEVERE PAIN 7-10; Start 09/21/18 at 23:30 Famotidine (Pepcid Iv) 20 mg Q12 IV Last administered on 09/23/18at 20:22; Admin Dose 20 MG; Start 09/22/18 at 09:00 Enoxaparin Sodium (Lovenox) 30 mg DAILY SC Last administered on 09/22/18at 10:05; Admin Dose 30 MG; Start 09/22/18 at 09:00 Piperacillin Sod/ Tazobactam Sod 100 ml @ 100 mls/hr Q8 IVPB Last administered on 09/23/18at 21:42; Admin Dose 100 MLS/HR; Start 09/22/18 at 13:00 SAMPSON SANFORD Sep 24, 2018 05:19
[2018-09-24] MEDS: PIPER-TAZO 3.375 GM IV (PMX) 100 ML IVPB SCH (06:03)
[2018-09-24 08:42] VITALS: BP 127/50; PULSE 76; RESP 20
[2018-09-24] MEDS: ENOXAPARIN 30 MG/0.3 ML SYG SC SCH (09:00)
[2018-09-24] MEDS: FAMOTIDINE 20 MG INJ IV SCH (09:42)
--- NOTE | 2018-09-24 14:05 | PDOCDIS ---
Discharge Instructions CONDITION [id number] Patient Condition: [id number] Good HOME CARE INSTRUCTIONS: [id number] Diet Instructions: [id number] Regular ACTIVITY: [id number] Activity Restrictions: [id number] No Restrictions FOLLOW UP/APPOINTMENTS Follow-up Plan PMD in 1-2 weeks To obtain out patient referral from PCP to see GI physician for screening colonoscopy VOLODYMYR MORAN MD Sep 24, 2018 14:05
--- NOTE | 2018-09-24 14:06 | PN ---
Date/Time of Note Date/Time of Note DATE: 09/24/18 TIME: 14:03 Assessment/Plan Lines/Catheters IV Catheter Type (from Nrsg): Peripheral IV Assessment/Plan Chief Complaint/Hosp Course 1. Concern for small bowel obstruction: Currently + bowel function; SBFT noted no obstruction -Advance diet as tolerated -No surgical intervention necessary at this time> may be discharged from surgical standpoint with follow-up with PMD 2. Abdominal pain: Resolved -As above -Pain management 3. Hyperbilirubinemia: Noted sludge in gallbladder without cholecystitis -Trend -Per GI 4. BRE: -Limit nephrotoxic meds -Renally dose meds -Judicious fluids Thank you. Patient seen and examined in collaboration with Dr. Regulo Pretty. Subjective 24 Hr Interval Summary Feels much improved. Continues to have bowel function. Creatinine improved. No fevers, chills, sob, congested cough, cp, palpitations, logan, dizziness, nausea, vomiting, diarrhea, dysuria. Exam/Review of Systems Vital Signs Vitals Vital Signs Date Temp Pulse Resp B/P (MAP) Pulse Ox O2 O2 Flow FiO2 Time Delivery Rate 09/24/18 97.7 76 20 127/50 96 Room Air 08:42 (75) Intake and Output 09/23/18 09/23/18 09/24/18 1515:00 23:00 07:00 IntakeIntake Total 1240 ml 610 ml 800 ml OutputOutput Total 200 ml BalanceBalance 1040 ml 610 ml 800 ml Exam Free Text/Dictation Constitutional: alert, oriented, well developed Psych: nl mood/affect; No anxiety Head: normocephalic, atraumatic Eyes: nl conjunctiva, EOMI, nl lids; No nl sclera (Minimal icterus) ENMT: nl external ears & nose, nl lips & teeth, nl nasal mucosa & septum, mucosa pink and moist Neck: supple, non-tender; No jvd Respiratory: normal air movement; No congested cough Cardiovascular: regular rate and rhythm Gastrointestinal: soft, non-tender, other (Umbilical hernia) Musculoskeletal: nl extremities to inspection, nl gait and stance Extremities: normal pulses Neurological: nl mental status, nl speech, nl strength Skin: nl turgor; No rash or lesions Lymph: nl lymph nodes Results Result Diagram: 09/22/18 0516 09/24/18 0500 RSAVAN HAMILTON NP Sep 24, 2018 14:06
== END 2018-09-24 14:45 | disposition home or self-care (01) | DRG 389 ==
LOC: E/R 20:53 → PP2 23:30
PROVIDERS: ADMIT Internal Medicine; ATTEND Internal Medicine
DX: K56.609 Unspecified intestinal obstruction, unspecified as to partial versus complete obstruction (principal); N17.9 Acute kidney failure, unspecified; E80.6 Other disorders of bilirubin metabolism; Z85.828 Personal history of other malignant neoplasm of skin; Z80.0 Family history of malignant neoplasm of digestive organs; Z88.0 Allergy status to penicillin
CPT/HCPCS: 36415; 71045; 74176; 74250; 76705; 76775; 80048; 80053; 81001; 81003; 82270; 83036; 83605; 84484; 85025; 85610; 85730; 87045; 87086; 87205; 93005; 96365; 96375; J1650; J2405; J2543; J7030